=== PATIENT | female | born 1980 | race Caucasian/White ===

== ENCOUNTER 2021-12-07 16:33 | Emergency (ER) | payer OTHER ==
[2021-12-07] MEDS ORDERED: Adacel Vial IM ONE ×2 (16:41→16:46)
[2021-12-07 16:43] VITALS: BP 144/79; PULSE 86; O2SAT 100
[2021-12-07] MEDS ORDERED: BACIGUENT PACKET TP ONE (16:52)
[2021-12-07] MEDS ORDERED: BACIGUENT PACKET ONE (16:53)
--- NOTE | 2021-12-07 17:01 | ERPHSYRPT ---
- History of Present Illness Source: patient Exam Limitations: no limitations Patient Subjective Stated Complaint: Laceration Triage Nursing Assessment: Patient ambulated back to ED and transferred self to bed. Patient A+OX 3. Patient's skin pink, warm and dry. Patient states she was sharpening a pocket knife when the knife slipped causing a laceration to left hand 3rd digit. 1cm laceration noted to left hand 3rd digit. Patient denies pain or discomfort. Physician History: Pocket knife vs L 3rd digit PIP joint before ER arrival at home. Pt given Tdap in ER. She is R handed and denies other/previous injury. Occurred: just prior to arrival Method of Injury: incised Quality: constant Severity of Pain-Max: mild Severity of Pain-Current: mild Extremities Pain Location: 3rd finger: left Modifying Factors: Improves With: movement Associated Symptoms: none Allergies/Adverse Reactions: No Known Drug Allergies Allergy (Verified 12/07/21 16:38) Home Medications: Buprenorphine HCl/Naloxone HCl [Suboxone 8 mg-2 mg Tablet Sl] 1 each SL DAILY 01/13/14 [History] Hx Tetanus, Diphtheria Vaccination/Date Given: No Hx Influenza Vaccination/Date Given: No Hx Pneumococcal Vaccination/Date Given: No Immunizations Up to Date: Yes Travel Risk - International Travel Have you traveled outside of the country in past 3 weeks: No - Coronavirus Screening Are you exhibiting any of the following symptoms?: No Close contact with a COVID-19 positive Pt in past 14-21 Days: No - Vaccine Status Have you recieved a Covid-19 vaccination: No - Review of Systems Constitutional: No Symptoms Eyes: No Symptoms Ears, Nose, & Throat: No Symptoms Respiratory: No Symptoms Cardiac: No Symptoms Abdominal/Gastrointestinal: No Symptoms Genitourinary Symptoms: No Symptoms Skin: No Symptoms Neurological: No Symptoms Psychological: No Symptoms Endocrine: No Symptoms Hematologic/Lymphatic: No Symptoms Immunological/Allergic: No Symptoms - Past Medical History Pertinent Past Medical History: Yes Neurological History: Migraines ENT History: No Pertinent History Cardiac History: No Pertinent History Respiratory History: No Pertinent History Endocrine Medical History: No Pertinent History Musculoskeletal History: No Pertinent History GI Medical History: No Pertinent History History: No Pertinent History Psycho-Social History: Other Female Reproductive Disorders: No Pertinent History - Past Surgical History Past Surgical History: Yes Neuro Surgical History: No Pertinent History Cardiac: No Pertinent History Respiratory: No Pertinent History Gastrointestinal: No Pertinent History Genitourinary: No Pertinent History Musculoskeletal: No Pertinent History Female Surgical History: Section, Tubal Ligation Other Surgical History: KNEE SURGERY - Social History Smoking Status: Current every day smoker How long have you smoked: YRS Exposure to second hand smoke: No Drug Use: none Patient Lives Alone: No Significant Family History: no pertinent family hx - Female History Hx Last Menstrual Period: one week ago Hx Now: No - Nursing Vital Signs Nursing Vital Signs: Initial Vital Signs Temperature 97.6 F 12/07/21 16:39 Pulse Rate 86 12/07/21 16:39 Respiratory Rate 18 12/07/21 16:39 Blood Pressure 144/79 12/07/21 16:39 O2 Sat by Pulse Oximetry 100 12/07/21 16:39 Pain Scale Pain Intensity 0 Hypertensive - Physical Exam General Appearance: no apparent distress Eyes, Ears, Nose, Throat Exam: normal ENT inspection Neck Exam: normal inspection Cardiovascular/Respiratory Exam: normal breath sounds, regular rate/rhythm, heart sounds normal Abdominal Exam: non-tender, soft Back Exam: normal inspection, normal range of motion Shoulder Exam: normal inspection Elbow/Forearm Exam: normal inspection Wrist Exam: normal inspection Hand Exam: laceration (1cm superficial lac L 3rd digit over PIP joint/FROM/Good hemostasis/good distal capillary return and sensation) Neuro/Tendon Exam: normal sensation, normal motor functions, normal tendon functions, responds to pain, no evidence tendon injury, No motor deficit, No sensory deficit Mental Status Exam: alert, oriented x 3, cooperative Skin Exam: normal color, warm, dry SpO2 Interpretation: normal SpO2: 100 O2 Delivery: Room Air Procedures - Laceration/Wound Repair Left Dorsal Finger Wound Location: Left (3rd digit over PIP joint) Wound Length (cm): 1 Wound's Depth, Shape: superficial Wound Explored: clean Irrigated: No Hibiclens Prep: Yes Anesthesia: local, 1% Lidocaine Volume Anesthetic (ccs): 2 Suture Size/Type: 4-0, ethilon Number of Sutures: 3 Layer Closure?: No Sterile Dressing Applied?: Yes Splint Applied?: No Sling Applied?: No - Course Nursing assessment & vital signs reviewed: Yes Ordered Tests: Active Orders 24 hr Category Date Time Status Wound Care STAT Care 12/07/21 16:52 Completed Medication Summary Discontinued Medications Generic Name Dose Route Start Last Admin Trade Name Freq PRN Reason Stop Dose Admin Bacitracin Zinc 0.9 each 12/07/21 16:52 12/07/21 16:54 Bacitracin Packet 1 Each Pckt TP 12/07/21 16:53 0.9 each STAT ONE Administration Bacitracin Zinc Confirm 12/07/21 16:53 Bacitracin Packet 1 Each Pckt Administered 12/07/21 16:54 Dose 1 each .ROUTE .STK-MED ONE Diphtheria/Tetanus/Acell Pertussis 0.5 ml 12/07/21 16:41 12/07/21 16:49 Tdap --Diph,Pertuss(Acell),Tet Vac/Pf 0.5 Ml Vial IM 12/07/21 16:42 0.5 ml .ONCE ONE Administration Diphtheria/Tetanus/Acell Pertussis Confirm 12/07/21 16:46 Tdap --Diph,Pertuss(Acell),Tet Vac/Pf 0.5 Ml Vial Administered 12/07/21 16:47 Dose 0.5 ml IM .STK-MED ONE - Progress Progress: improved Progress Note: 12/07/21 17:00 Tdap given - Departure Departure Disposition: Home Clinical Impression: Finger laceration Condition: Stable Critical Care Time: No Referrals: PARUL GRIJALVA [Primary Care Provider] - Follow up/PCP as directed Instructions: Wound Care (DC), Laceration Repair With Stitches (DC) Additional Instructions: Keep laceration dry for 2 days, then gently wash 1-2 times a day with soap/water Sutures out in 10 days Watch for signs of infection-redness/increasing pain/pus/Temperature greater than 100.5
== END 2021-12-07 17:28 | disposition home or self-care (01) ==
LOC: ED 16:33
DX: S61.213A Laceration without foreign body of left middle finger without damage to nail, initial encounter (principal); W26.0XXA Contact with knife, initial encounter; Z72.0 Tobacco use; Z79.891 Long term (current) use of opiate analgesic; Z28.310 Unvaccinated for COVID-19
CPT/HCPCS: 12001; 90471; 90715; 99282; A9270-GY